=== PATIENT | female | born 1955 | race Caucasian/White ===

== ENCOUNTER 2016-09-26 22:55 | Emergency (ER) | payer OTHER ==
[~2016-09-26 22:55] MED LIST: AMLO5TAB2 PO; ASEN5TAB7 SL; BUPR100T6 PO; CLON0.5T PO; KLO5T PO; LEVO75TA4 PO; MELO-259 PO; OXCA600T3 PO; TRAZ-118 PO; lithium carbonate
[2016-09-26 23:00] VITALS: BP 77/50; PULSE 53; RESP 14; O2SAT 92
[2016-09-26] MEDS ORDERED: 0.9% Sodium Chloride 1,000 ML IV ONE (23:46)
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
[2016-09-27 00:04] LABS: BASOPHILS % (AUTO) 0.1 % (0-3); EOSINOPHILS % (AUTO) 1.7 % (0-5); MONOCYTES % (AUTO) 8.1 % (4-12); Mean Corpuscular Hemoglobin 27.3 pg (27.0-35.0); Mean Corpuscular Volume 80.5 fL (81-100); NEUTROPHILS % (AUTO) 49.3 % (40-74); Platelet Count 300 bil/L (150-400)
[2016-09-27 00:15] VITALS: BP 114/65; PULSE 55; RESP 16; O2SAT 98
[2016-09-27 00:22] LABS: TROPONIN T 0.01 ug/L (0.0-0.011)
[2016-09-27 00:53] VITALS: BP 121/57; PULSE 59; RESP 11; O2SAT 100
[2016-09-27 01:47] LABS: APPEARANCE,URINE HAZY (CLEAR,HAZY); COLOR,URINE STRAW (YELLOW); OCCULT BLOOD,URINE NEGATIVE (NEGATIVE); UROBILINOGEN,URINE NORMAL (NORMAL)
[2016-09-27 03:06] VITALS: BP 124/74; PULSE 77; RESP 14; O2SAT 99
--- NOTE | 2016-09-27 11:09 | DRSVH ---
PROCEDURE: X-RAY CHEST ONE VIEW, PORTABLE ([id number]) INDICATIONS: syncope TECHNIQUE: One view of the chest was acquired. COMPARISON: [facility], , CHEST 1VW (PORTABLE), 01/25/2013, 9:06. FINDINGS: Surgical changes and devices: Inferior cervical spine fusion. Lungs and pleura: No pleural effusions or pneumothorax. Mild diffuse interstitial prominence. Lungs are otherwise clear. Mediastinum: Mediastinal contours appear normal. Heart size is normal. Bones and chest wall: No suspicious bony lesions. Overlying soft tissues appear unremarkable. IMPRESSION: No acute cardiopulmonary disease. Dictated by: Vane Ray M.D. on 09/27/2016 at 11:06 Approved by: Vane Ray M.D. on 09/27/2016 at 11:06
[2016-10-17] MEDS ORDERED: ZIPR80CA2 PO (10:55)
[2016-10-17] MEDS ORDERED: MELA3TAB35 PO (10:55)
[2016-10-20] MEDS ORDERED: OXCA600T3 PO (08:02)
== END 2016-09-27 03:07 | disposition home or self-care (01) ==
LOC: SED 22:55
DX: R55 Syncope and collapse (principal); F31.9 Bipolar disorder, unspecified; M32.9 Systemic lupus erythematosus, unspecified; M19.90 Unspecified osteoarthritis, unspecified site; Z87.891 Personal history of nicotine dependence; Z88.5 Allergy status to narcotic agent; Z88.8 Allergy status to other drugs, medicaments and biological substances
CPT/HCPCS: 36415; 71010; 80053; 81000; 82948; 83735; 84484; 85025; 87040; 87086; 87088; 93005; 96360; 99285; J7030

== ENCOUNTER → 2016-10-20 | Day surgery (SDC) | payer OTHER ==
[~2016-10-20] VITALS: Ht 165.1 cm; Wt 72.6 kg
[~2016-10-20] MED LIST changes: -ASEN5TAB7 SL; -BUPR100T6 PO; +MELA3TAB35 PO; -MELO-259 PO; +Sodium Chloride LOK Flush 10 mL Syringe IVFLUSH SCH; +ZIPR80CA2 PO; +fentaNYL-PF 50 mCg/mL 2 mL Inj IVPUSH PRN; +fentaNYL-PF 50 mCg/mL 2 mL Inj ONE; -lithium carbonate
[2016-10-20 08:09] VITALS: BP 122/67; PULSE 58; RESP 15; O2SAT 96
[2016-10-20 09:27] VITALS: BP 127/66; PULSE 66; O2SAT 97
[2016-10-20 09:37] VITALS: BP 115/66; PULSE 57; O2SAT 97
[2016-10-20 09:44] VITALS: BP 115/79; PULSE 60; O2SAT 97
--- NOTE | 2016-10-20 10:01 | ENDO ---
[address] [address] ENDOSCOPY PROCEDURE PATIENT: NOEL GAGE : 1955 MR#: [id number] ADMIT: 10/20/2016 JOB ID: [id number] DATE: 10/20/2016 TYPE OF PROCEDURE: Colonoscopy. INDICATION: Patient with a personal history of colon polyps. Patient's ASA classification is 2. Mallampati score is 2. MEDICATIONS: 1. Versed 4 mg. 2. Fentanyl 75 mcg. INSTRUMENT USED: PCF-H180AL PREPARATION QUALITY: Fair. PROCEDURE DETAILS: After informed consent was obtained, the patient was brought in to the GI suite, where she was placed on oxygen via nasal cannula and monitored with continuous pulse oximeter, telemetry, and blood pressure monitoring. A time-out was performed. Then, she was placed in a left lateral decubitus position and medications were administered for sedation. Digital rectal exam was performed and was unremarkable. The colonoscope was then inserted into the rectum and advanced under direct visualization to the cecum, which was identified by the presence of the ileocecal valve and appendiceal orifice. Once the cecum was reached, the colonoscope was withdrawn back to the rectum. Mucosa and lumen were examined. In the rectum, retroflexion was performed. Following retroflexion, remaining air in the rectum was suctioned and procedure was completed. FINDINGS: 1. In the ascending colon, there was a diminutive polyp that was removed with cold biopsy forceps. 2. In the transverse colon, there was a diminutive polyp that was removed with cold biopsy forceps. 3. Scattered diverticula were seen throughout the left side of the colon. 4. Internal hemorrhoids were noted as the colonoscope was withdrawn through the anal canal. IMPRESSION: 1. Ascending colon polyp. 2. Transverse colon polyp. 3. Left-sided diverticulosis. 4. Internal hemorrhoids. RECOMMENDATIONS: 1. Repeat colonoscopy in five years. 2. Fiber rich diet. 3. Follow up in GI clinic as needed. COMPLICATIONS: None. ESTIMATED BLOOD LOSS: Less than 5 mL.
--- NOTE | 2016-10-21 13:46 | PATH ---
SURGICAL PATHOLOGY Attending Physician:Gabrielle Gonzalez CASE STATUS: Signed Out PATIENT NAME: NOEL GAGE PID: [id number] : 1955 DATE COLLECTED:10/20/2016 16:19 SPECIMEN: 1: Colon, Polyp 2: Colon, Polyp CLINICAL HISTORY: 1). ASCENDING POLYP 2). TRANSVERSE POLYP FINAL DIAGNOSIS: 1.ASCENDING POLYP, BIOPSY: - TUBULAR ADENOMA. 2.TRANSVERSE POLYP, BIOPSY: - HYPERPLASTIC POLYP IN 1 OF 2 FRAGMENTS. ICD10 D12.6 GROSS DESCRIPTION: The specimen is received in two formalin filled containers labeled with the patient's name. 1). The specimen is labeled "ascending polyp" and consists of a 0.4 x 0.3 x 0.2 CM portion of tissue which is entirely submitted in cassette 1A. 2). The specimen is labeled "transverse polyp" and consists of a 0.7 x 0.1 x 0.1 CM portion of tissue which is entirely submitted in cassette 2A. 10/20/2016DC MICRO DESCRIPTION: See diagnosis. ICD-9 CODES: CPT CODES: 1: 19753 2: 13479 Electronically Signed Out Lizandro Santoyo MD Located Within [facility] [address], [place] [address] Technical component performed at [facility], [facility] [address], [place], [address]
== END | disposition home or self-care (01) ==
LOC: END 00:01
PROVIDERS: ATTEND Internal Medicine Gastroenterology
DX: Z12.11 Encounter for screening for malignant neoplasm of colon (principal); D12.2 Benign neoplasm of ascending colon; K63.5 Polyp of colon; K57.30 Diverticulosis of large intestine without perforation or abscess without bleeding; K64.8 Other hemorrhoids; I10 Essential (primary) hypertension; M79.7 Fibromyalgia; F31.9 Bipolar disorder, unspecified; E55.9 Vitamin D deficiency, unspecified
CPT/HCPCS: 45380; G0500; J2250; J3010; J7030

== ENCOUNTER 2016-11-18 11:19 | Inpatient (IN) | payer OTHER ==
[~2016-11-18] VITALS: Ht 165.1 cm; Wt 5.0 kg
[2016-11-18] VITALS (10 sets, daily range): BP systolic 94–146; BP diastolic 50–69; PULSE 50–68; RESP 10–20; O2SAT 94–99
[~2016-11-18 11:19] MED LIST changes: -AMLO5TAB2 PO; +CHOL500051 PO; -CLON0.5T PO; +CeFAZolin Inj 2 GM in IV Premix 1 EACH IV SCH; -KLO5T PO; -LEVO75TA4 PO; +OXCA300T5 PO; -OXCA600T3 PO; -Sodium Chloride LOK Flush 10 mL Syringe IVFLUSH SCH; +TRAM50TA2 PO; -TRAZ-118 PO; +TRAZ300T3 PO; +VITA1TAB47 PO; +Vancomycin Dose per Pharmacist XX ONE; +Vancomycin Inj 1,000 MG in IV Premix 1 EACH IV SCH; -fentaNYL-PF 50 mCg/mL 2 mL Inj IVPUSH PRN; -fentaNYL-PF 50 mCg/mL 2 mL Inj ONE; +resperidone
[2016-11-18] MEDS: Lactated Ringer's 1,000 ML IV SCH ×3 (12:00→16:44)
[2016-11-18] MEDS ORDERED: Bupivacaine Liposome 1.3% 20 mL Inj ONE (12:37)
--- NOTE | 2016-11-18 13:22 | PCM.HPANE ---
Patient Data Surgeon Admitting Provider: Attending Provider:Anthony Monae DO Primary Care Physician:Humberto Duvall MD Other Provider:Brooklyn Burciagaingham Anesthesia Reason for Visit Right Hip Arthritis Ht/WT & BMI Height (Feet): 5 Height (Inches): 5.00 Weight (Kilograms): 71.6 Body Mass Index 26.00 Allergies Coded Allergies: codeine (Verified Allergy, Severe, Itching, 11/12/16) pregabalin (Verified Adverse Reaction, Severe, VISION LOSS, 11/12/16) Past Anesthesia History Anesthesia History: Denies:: Abnormal Airway, Anesthesia Reactions, Difficult Intubation, Malignant Hyperthermia Diabetes History Hx Diabetes?: No MRSA MRSA: No Medications Home Meds Incl Beta Katie: No Reported Medications Cholecalciferol (Vitamin D3) (Vitamin D)5,000 Unit Capsule5,000 Unit PO DAILY 11/12/16 B Complex with Vitamin C (Vitamin B-Complex & C)1 Each Tablet.er1 Each PO 11/12/16 Oxcarbazepine (Trileptal)300 Mg [id number] Mg PO HS 30 Days 11/12/16 Trazodone 300 Mg [id number] Mg PO HS Ref 0 11/12/16 Tramadol 50 Mg Ycphny36 Mg PO TID PRN For Pain Ref 0 11/12/16 [resperidone] No Conflict Check1 Mg DAILY 11/12/16 Melatonin 3 Mg Tablet3 Mg PO HS 11/12/16 Ziprasidone (Geodon)80 Mg Fhdtvlb46 Mg PO BID 11/12/16 Discontinued Reported Medications Oxcarbazepine (Trileptal)600 Mg Tablet1,500 Mg PO DAILY 30 Days 10/20/16 Melatonin 3 Mg Tablet3 Mg PO 10/17/16 Ziprasidone (Geodon)80 Mg Mmxepkg25 Mg PO BID 10/17/16 Levothyroxine 75 Mcg Pllwto07 Mcg PO DAILY Ref 0 07/19/15 Trazodone 100 Mg Nmyksx572 Mg PO HS Ref 0 07/18/15 History History of ENT Problems?: No HEENT History: Denies:: Abnormal Airway Cataracts Difficult Intubation Dysphagia Glaucoma Hearing Problem Sinus Problem TMJ Denture Type: None Teeth Condition: Within Normal Limits Hx of Heart Problems?: Yes Cardiovascular History: Denies:: AICD Chest Pain Congestive Heart Failure Hypertension Pacemaker Valvular Heart Disease Hx of Respiratory Problem?: No Respiratory History: Positive for:: Pneumonia (2005) Denies:: Oxygen Administration Tuberculosis Use of C-PAP Machine Hx Neurologic Problems?: No Neurological History: Denies:: Alzheimer's Disease CVA Dementia Dizziness Headaches Parkinson's Disease TIA Hx of GI Problems?: No Hx of Problems?: No Genitourinary History: Denies:: Urinary Tract Infection Female Hx: Positive for:: Problems with Breasts? (S/P BREAST REDUCTION) Denies:: Currently Skin History: Denies:: History Skin Disorders? Pressure Ulcers Hx Musculoskeletal Problems?: Yes Musculoskeletal History: Positive for:: Degenerative Joint Joint Replacement (S/P BILAT TKA'S, left hip, cervical spine) Musculoskeletal Trauma (left shoulder current admission problem) Osteoarthritis Denies:: Systemic Lupus Hx of Psycho/Social Problems?: Yes Psycho Social History: Positive for:: Anxiety Bipolar Disorder (DR. YAÑEZ/SURPRISE) Hx Depression Hx Surgeries?: Yes (BREAST REDUCTION,BILAT TKA'S, ) Hx Any Other Health Problems?: Yes Other History: Positive for:: Hospitalization (Lt hip repair) Denies:: Cancer (Pre cancer cervix removed at age 16) Endocrine Disease Thyroid Disease History Blood Transfusions: Positive for:: Accept Blood Products? Blood Transfusions Denies:: Blood Transfuse Reaction Hx Diabetes: No Hx Alcohol Use: NoHx Substance Use: No Smoking Status: Former Smoker Have You Smoked inLast 12 mo: No Stop/Bang S-Snoring: Do You Snore Loudly: No T-Tired: feel tired, fatigued: No O-Obsered: Observed not breath: No P-Blood Pressure: treated: No B- Body Mass Index > 35 kg/m2: No A- Age over 50: Yes N- Neck Large Circumference: No G- Gender Male: No ORION Total Score: 1 Risk Assessment Category Category 1A: Patient has history of documented sleep apnea, and HAS NOT received any narcotic, sedative or anesthesia administration during this stay. Category 1B: Patient has history of documented sleep apnea, and HAS received any narcotic , sedative or anesthesia administration during this stay Category 2: Patient has SUSPECTED Obstructive Sleep Apnea, and HAS received any narcotic , sedative or anesthesia administration during this stay. Category 3: Patient has SUSPECTED Obstructive Sleep Apnea and HAS NOT received narcotic, sedative or anesthesia administration during this stay. Category 4: Outpatient in Procedural Areas with known sleep apnea or who screen positive for High Risk via the STOP/BANG questionnaire. Exam Exam Vital Signs Vital Signs Date Time Temp Pulse Resp B/P Pulse Ox O2 Delivery O2 Flow Rate FiO2 11/18/16 12:29 36.6 60 16 138/66 95 Room Air General Appearance: Alert, Oriented X3 HEENT/AIRWAY: MP 2, Neck Movement (FROM) Lungs: Clear to Auscultation, Clear to Percussion Heart: Exam Unremarkable, Regular Rate/Rhythm Plan Impression Patient chart reviewed, patient interviewed and anesthestic plan with risks, benefits, and alternatives discussed, and informed consent obtained. ASA Physical Status: ASA2 Mod Systemic Disease Anesthetic Plan: SAB Bene/Risks/Altern/Consents: Yes HP Complete Prior to Induction: Yes Trever Warren MD Nov 18, 2016 12:35
[2016-11-18] MEDS ORDERED: Bupivacaine Liposome 1.3% 20 mL Inj INFILTRATE ONE (13:39)
[2016-11-18] MEDS ORDERED: Bupivacaine-MPF 0.25%/EPI 30 mL Inj INFILTRATE ONE (13:40)
[2016-11-18] MEDS ORDERED: 0.9% Sodium Chloride 10 mL Inj INFILTRATE ONE (13:40)
[2016-11-18] MEDS ORDERED: Lactated Ringer's 500 ML IV PRN (13:47)
[2016-11-18] MEDS ORDERED: Lactated Ringer's 1,000 ML IV SCH (13:47)
[2016-11-18] MEDS ORDERED: Ondansetron 2 mg/mL 2 mL Inj IVPUSH PRN ×2 (13:50→15:35)
[2016-11-18] MEDS ORDERED: Labetalol 5 mg/mL 20 mL Inj IV PRN (13:50)
[2016-11-18] MEDS ORDERED: EPHEDrine Sulfate 50 mg/mL Inj IVPUSH PRN (13:50)
[2016-11-18] MEDS ORDERED: Phenylephrine 10,000 mCg/mL Inj IVPUSH PRN (13:50)
[2016-11-18] MEDS ORDERED: HYDROmorphone 1 mg/mL Inj IVPUSH PRN ×2 (13:50→15:35)
[2016-11-18] MEDS ORDERED: Atropine 0.4 mg/mL Inj IVPUSH PRN (13:50)
[2016-11-18] MEDS ORDERED: fentaNYL-PF 50 mCg/mL 2 mL Inj IVPUSH PRN (13:50)
[2016-11-18] MEDS ORDERED: MetoCLOpramide 5 mg/mL 2 mL Inj IVPUSH PRN (13:50)
[2016-11-18] MEDS ORDERED: hydrOXYzine Pamoate 25 mg Capsule PO PRN (15:35)
[2016-11-18] MEDS ORDERED: Magnesium Hydroxide 10 mL Oral Concentration PO PRN (15:35)
[2016-11-18] MEDS ORDERED: Polyethylene Glycol (PEG) 17 Gm Powder PO PRN (15:35)
[2016-11-18] MEDS ORDERED: diphenhydrAMINE 25 mg Capsule PO PRN (15:35)
--- NOTE | 2016-11-18 15:53 | PCM.ANEP1 ---
Post Anesthesia PACU Phase 1 Assessment Vital Signs Vital Signs Date Time Temp Pulse Resp B/P Pulse Ox O2 Delivery O2 Flow Rate FiO2 11/18/16 15:46 36.2 58 14 120/64 97 Room Air 11/18/16 12:29 36.6 60 16 138/66 95 Room Air Anesthetic Administered: SAB Level of Alertness: Awake, talking GARCIA's with Equal Strength: No (SAB) Pain: No Nausea or Vomiting: No CV Function & Hydration Stable: Yes Airway Device: Oxygen Delivery: Room Air Lungs: Clear to Auscultation, Clear to Percussion PACU Phase 2 Assessment Complications: No Follow up Care: No Patient Instructions Provided: N/A Trever Warren MD Nov 18, 2016 15:53
[2016-11-18] MEDS ORDERED: Lactated Ringer's 1,000 ML IV ONE (16:00)
[2016-11-18] MEDS: Sodium Chloride LOK Flush 10 mL Syringe IV SCH (16:30)
[2016-11-18] MEDS ORDERED: Ketamine 10 mg/mL 20 mL Inj ONE (16:33)
[2016-11-18] MEDS ORDERED: Propofol 10,000 mCg/mL 20 mL Inj ONE (16:33)
[2016-11-18] MEDS ORDERED: EPHEDrine/NS 5 mg/mL 5 mL Syringe ONE (16:33)
[2016-11-18] MEDS ORDERED: Glycopyrrolate 0.2 MG/ML 1mL Inj ONE (16:33)
[2016-11-18] MEDS ORDERED: fentaNYL-PF 50 mCg/mL 2 mL Inj ONE (16:33)
[2016-11-18] MEDS: 0.9% Sodium Chloride 1,000 ML IV SCH (16:42)
--- NOTE | 2016-11-18 16:50 | NUR ---
Post op Transfer to [facility] room 1001 via bed at 16:25. Report received from Franklyn. Pt is alert and oriented, RA. denies pain and nausea, requests coffee. S/p spinal, numb to about T10. Weight bag on R anterior hip.
--- NOTE | 2016-11-18 17:06 | DRSVH ---
PROCEDURE: X-RAY PELVIS W/LAT HIP (RT) ([id number]) INDICATIONS: s/p right total hip TECHNIQUE: AP pelvis and lateral view of the right hip acquired. COMPARISON: [facility], , XR PELVIS W LATERAL HIP RT, 07/21/2016, 8:41. FINDINGS: Bones: Patient is status post right hip arthroplasty, with hardware components in expected positions . The hip joint appears congruent. The visualized bony structures appear intact. There is also a l eft hip arthroplasty. Lower lumbar degenerative disc disease Soft tissues: Overlying postoperative changes are noted. No suspicious soft tissue densities. IMPRESSION: Expected postoperative appearance Dictated by: Alan Harrington M.D. on 11/18/2016 at 16:04 Approved by: Alan Harrington M.D. on 11/18/2016 at 16:05
[2016-11-18] MEDS: oxyCODONE-Acetamin 5-325 mg Tablet PO PRN ×2 (17:47→23:19)
--- NOTE | 2016-11-18 19:39 | OP ---
[address] [address] OPERATIVE REPORT PATIENT: NOEL GAGE : 1955 MR#: [id number] ADMIT: 11/18/2016 JOB ID: [id number] DATE OF SURGERY: 11/18/2016 PREOPERATIVE DIAGNOSIS(ES): Right hip degenerative joint disease. POSTOPERATIVE DIAGNOSIS(ES): Right hip degenerative joint disease. PROCEDURE: Right direct anterior total hip arthroplasty. SURGEON: Anthony Monae DO. SLUBBER OPERATOR: Santa Vaz PA-C. INDICATIONS: The patient is a 61-year-old female with right hip severe degenerative arthritis with failed conservative measures and wished to proceed with a right total hip arthroplasty. We discussed the risks, benefits, and possible complications of surgery including, but not limited to injury to nerves and vessels, infection, bleeding, incomplete relief of symptoms, stiffness, need for additional procedures. The patient had good understanding, all questions were answered and she wished to proceed. A respiratory care assistant was required for the successful completion of this procedure. PROCEDURE IN DETAIL: The patient was brought to the operating room. She was given a preoperative antibiotic 1 g TXA preoperatively, as well as a spinal anesthetic and placed onto the Conger table. The right hip was sterilely prepped and draped. An incision was made about 3 cm lateral and 2 cm distal to the ASIS overlying the tensor fascia remy muscle. Dissection was carefully carried through the subcutaneous tissue and electrocautery was used for hemostasis. The fascia overlying the CFL was incised in line with the skin incision, and the fascial plane was used between the TFL and the sartorius. The circumflex vessels were identified and suture ligated and cauterized and the fat overlying the anterior hip capsule was then identified and elevated as was some of the rectus. The retractors were then placed on either side of the femoral neck and a T-shaped capsular incision was made with the anterior and posterior leaves of the capsule which were tagged with suture. Next, an osteotome was used to place the provisional neck resection level and using fluoroscopy the neck resection level was chosen and the neck resection was performed with a saw, completed with an osteotome and the femoral head was then removed. Next, the acetabulum was prepared. Anterior and posterior acetabular retractors were placed and the pulvinar and labrum were removed. The acetabulum was reamed sequentially up to a size 47 for a 48 cup. Care was taken to ensure the appropriate abduction and anteversion and this was confirmed with fluoroscopy. I impacted a few pinnacle three-hole 48 cup and had excellent fixation purchase and a single superior screw was used to aid with fixation. I elected to place a 48 x 32 + 4 lateralized liner in order to have more polyethylene given her relatively young age. The poly was impacted into position and the hip was then slowly externally rotated, releasing the soft tissues off of the lateral femur in order to facilitate exposure. A box osteotome was used to begin the lateralized starting point for preparation of the femur, and the femur was then broached. Unfortunately, the initial broach did exit the cortex proximal medial and this was corrected. It was quite proximal and was of essentially no consequence. This was broached sequentially up to a size 3 stem which had excellent fit and fill and a calcar planer was used to smooth the top of the acetabulum. The hip was reduced and fluoroscopy was used to confirm reduction and satisfactory alignment and position of the prosthesis and appropriate leg lengths. The DePuy Tri Lock 3 stem was then impacted in position with a 1.5 head. This was reduced, had excellent range of motion, good stability, and the wound was then irrigated. A 2nd gram of TXA was given and the wound was closed with #1 Surgilon to repair the capsule. The fascia overlying the tensor fascia remy was repaired with 0-Vicryl, and the subcu was closed with 2-0, the skin was closed with a running subcuticular Stratafix suture. A mixture of Exparel, saline and Marcaine was added as an adjunct local anesthetic. Sterile dressings were applied. Patient tolerated the procedure well. Blood loss was 200 cc. Postoperative protocol: Have the patient weightbear to tolerance. Use a walker or cane for one month postoperatively. Use aspirin for DVT prophylaxis. Will plan for Percocet for postop pain as she has done well with this in the past.
[2016-11-18] MEDS ORDERED: OXcarbazepine 300 mg Tablet PO SCH (21:00)
[2016-11-18] MEDS: Senna-Docusate 8.6-50 mg Tablet PO SCH (21:29)
[2016-11-18] MEDS: CeFAZolin Inj 2 GM in IV Premix 1 EACH IV SCH (21:30)
--- NOTE | 2016-11-18 23:50 | NUR ---
Syncopal Episode At 2310 pt transferred to [facility] and while sitting has syncopal episode. Pt transferred back to bed with 2PA. Pt states "I feel dizzy and slightly nauseous." Pt also stated "I have had this happen to me prior to this admit." Pt visually looked pale. VS taken: Manual BP 95/50, P 64. SAO2 94% RA. Prior BP of: 134/61, P 68, SAO2 96%. C/o pain 8 out of 10 to right hip. Dressing C/D/I, with weight in place in when pt in bed. 1 tab Percocet given, denies Zofran at this time. Blood sugar taken, 117. NS running @100. Color returned to pt's face while RN in room. Continue to monitor BP's and pain.
[2016-11-19] MEDS: Sodium Chloride LOK Flush 10 mL Syringe IV SCH ×2 (00:30→08:30)
[2016-11-19 01:30] VITALS: BP 123/75; PULSE 71; O2SAT 96
[2016-11-19] MEDS: 0.9% Sodium Chloride 1,000 ML IV SCH (01:31)
[2016-11-19 01:32] VITALS: BP 107/70; PULSE 71
--- NOTE | 2016-11-19 01:33 | NUR ---
Ortho VS Attempted ortho VS due to previous syncopal episide this shift when pt requested BSC. Lay: BP 123/75, P 71, O2 96%. Sit: BP 107/70, P 71. Attempted to stand pt and take another set and pt started to feel dizzy after approx 30 seconds and needed to sit down. Once back in bed took another set: BP 90/65, P 66. Pt will use bed menezes until she can be re-evaluated with PT and MD later this morning.
[2016-11-19 01:35] VITALS: BP 90/65; PULSE 66
[2016-11-19 05:00] VITALS: BP_SYST 117; BP_SYST 120; BP_SYST 129; BP_DIAS 61; BP_DIAS 73; BP_DIAS 77; PULSE 66; PULSE 68; RESP 16; O2SAT 94; O2SAT 95
[2016-11-19] MEDS: oxyCODONE-Acetamin 5-325 mg Tablet PO PRN ×3 (05:15→13:07)
[2016-11-19] MEDS: CeFAZolin Inj 2 GM in IV Premix 1 EACH IV SCH (05:20)
[2016-11-19 06:28] LABS: BASOPHILS % (AUTO) 0 % (0-3); EOSINOPHILS % (AUTO) 0 % (0-5); MONOCYTES % (AUTO) 5.5 % (4-12); Platelet Count 236 bil/L (150-400)
--- NOTE | 2016-11-19 07:57 | PCM.PNORTH ---
Subjective Date of Service: Nov 19, 2016 Visit Information: Reason for Visit Right Hip Arthritis Surgery/Surgery Date RIGHT TOTAL HIP REPLACEMENT 11/18/16 Post-Op Day # 1 Date of Admission: Nov 18, 2016 at 16:32 Hospital Day # Subjective Syncopal episode last night and trying to get up after taking her night time sleep meds. Patient was seen by physical therapy this morning and ambulated 200 -150 feet, independent with transfers and orthostatic vital signs were normal. Postop General: No Shortness of Breath, No Chest Pain, Good Appetite Pain Management: PO Objective Exam Objective Patient is seen sitting up in bed Vital Signs and I/O Vital Sign - Last Date Time Temp Pulse Resp B/P Pulse Ox O2 Delivery O2 Flow Rate FiO2 11/19/16 05:00 36.6 66 16 129/73 95 Room Air Intake and Output 11/18/16 11/18/16 11/19/16 Cumulative From/Thru 15:00 23:00 07:00 11/12/16 09:46 - 11/19/16 06:41 Intake Total 1470 ml 300 ml 1552 ml 3322 ml Output Total 100 ml 1100 ml 1200 ml Balance 1470 ml 200 ml 452 ml 2122 ml Intake Oral 200 ml 350 ml 550 ml IV Total 1470 ml 100 ml 1202 ml 2772 ml Output Urine Total 100 ml 1100 ml 1200 ml # Bowel Movements 0 0 Lab & Micro Results Laboratory Tests Test 11/19/16 05:15 White Blood Count 8.3th/mm3 (3.8-10.1) Red Blood Count 3.64mil/mm3 (3.90-5.20) Hemoglobin 10.2g/dL (12.0-15.6) Hematocrit 30.2% (35.0-46.0) Mean Corpuscular Volume 83.0fL (81-100) Mean Corpuscular Hemoglobin 28.0pg (27.0-35.0) Mean Corpuscular Hemoglobin Concent 33.8% (32.0-37.0) Red Cell Distribution Width 13.5% (12.3-15.4) Platelet Count 236bil/L (150-400) Neutrophils (%) (Auto) 87.0% (40-74) Lymphocytes (%) (Auto) 7.3% (14-46) Monocytes (%) (Auto) 5.5% (4-12) Eosinophils (%) (Auto) 0% (0-5) Basophils (%) (Auto) 0% (0-3) Sodium Level 129mEq/L (134-144) Potassium Level 4.3mEq/L (3.5-5.2) Chloride Level 93mEq/L (97-108) Carbon Dioxide Level 22mmol/L (18-29) Blood Urea Nitrogen 6mg/dL (8-27) Creatinine 0.39mg/dL (0.57-1.00) Estimat Glomerular Filtration Rate 238mL/min (>59) Glucose Level 118mg/dL (60-99) Calcium Level 8.1mg/dL (8.5-10.1) Result Diagram: 11/19/1651411/19/16514 General Appearance: Alert, Oriented X3, Cooperative, No Acute Distress Extremities: Distal Pulses Palpable, No Compartment Syndrom Noted, Thigh & Calf Soft/Nontender Postop Sensory Motor: Distal Motor Intact, Distal Sensation Intact, NVI Distally SURGICAL WOUND : Wound Location/Description Right hip: Surgical dressing is clean, dry and intact Incision General Appearance: No Direct Observation Activity: Activity per PT Catheters: None Assessment & Plan Impression POD #1 Status post right direct anterior total hip arthroplasty Problems: Plan Weightbearing: Weightbearing as tolerated with walker 1 month DVT prophylaxis: aspirin 325 mg twice a day 6 weeks Physical therapy for transfers, progressive ambulation, therapeutic exercise Apply compression stockings prior to discharge. Patient brought her own. Wound care: Patient will remove surgical dressing on postop day 2 (tomorrow) and change tomorrow to an Island dressing Discharge plan: Discharge home today after afternoon PT Discharge instructions are reviewed Follow-up plan: In 2 weeks at [facility] with CHASIDY for wound check and at [address] Monae with x-rays Pain Management: Percocet, toradol VTE Prophylaxis: SCDs, Other (Aspirin 325 mg BID) Resuscitation Status: CPR: Attempt Resuscitation [place] PA-C Nov 19, 2016 07:57
[2016-11-19] MEDS ORDERED: risperiDONE 1 mg Tablet PO SCH ×2 (08:30→21:00)
[2016-11-19 08:45] VITALS: BP 108/64; PULSE 69; RESP 18; O2SAT 95
[2016-11-19] MEDS: Senna-Docusate 8.6-50 mg Tablet PO SCH (08:45)
--- NOTE | 2016-11-19 08:50 | PCM.DIORTH ---
Ortho Discharge Instruction Date of Service: Nov 19, 2016 Dates of Hospitalization Date of Hospital Admission Nov 18, 2016 at 16:32 Providers Admitting Physician: Anthony Monae DO Primary Care Physician: Humberto Duvall MD Attending Physician: Anthony Monae DO Activity Discharge Activity-General: Be up and about, Balance rest and activity, Elevate & ice extremity Right Lower Extremity: Weight Bearing as tolerated Discharge Assist Device: Front Wheeled Walker (x 1 month) Dressing and Incisional Care Discharge Dressing Care: Keep dressing clean, dry & intact Discharge Hygiene: May shower (see instructions below) Additional Instructions Discharge Instructions Weightbearing: Weightbearing as tolerated with walker 1 month DVT prophylaxis: aspirin 325 mg twice a day 6 weeks Thigh high compression stockings 4 weeks on right leg, and 2 weeks on left leg Activity: Increase her walking a little more each day Wound care: On removed the surgical dressing and replaced with small bandage. Leave the Steri-Strips in place on the skin On Thursday, the patient may shower if the wound has no drainage present. Wound may be uncovered to shower. Let soap and water run over the wound, pat dry and apply a new dressing. Hip precaution positions: Do not externally rotate the right leg past 90 Discharge plan: Discharge home today Follow Up Plan Follow Up Plan Follow-up plan: In 2 weeks at [facility] with CHASIDY for wound check and at [address] Monae with x-rays Call your provider for: Fever, Chills, Shortness of breath, Vomitting, Drainage at incision, Wound redness (that is spreading) Santa Vaz PA-C Nov 19, 2016 08:50
[2016-11-19] MEDS ORDERED: Aspirin-Expunged Drug, Do Not Renew! PO (09:16)
[2016-11-19] MEDS ORDERED: OXYC1TAB24 PO (09:16)
--- NOTE | 2016-11-19 09:20 | NUR ---
Social Work- Initial Assessment/ Discharge Data: See attached CM Initial Assessment. Pt is a 61 year old female admitted for anterior hip replacement. Pt's insurance is [employer]. Pt's PCP is Humberto Duvall MD. Pt's readmit risk score not entered at this time. 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 PT has cleared pt for home, she has walked 200 feet and completed her stairs. SW met with pt at bedside to discuss d/c planning, SW role explained. Pt alert and oriented x3. Pt resides in [place] in a home with no stairs with her grandson. Pt is not a caregiver. Pt uses no DME at baseline, has a cane and walker available for use. Pt is independent at baseline with ADLs and self-care. Pt has no HH history. Pt has history of [facility]. Pt has no LTC or VA benefits. Pt has DPOA on file. Pt to d/c home with son to transport via POV. No discharge needs identified. Pt provided with d/c planning checklist, phone number and plan written on whiteboard. Assessment: Pt who is independent at baseline. Plan: Pt to d/c home with her son to transport via POV. No discharge needs identified. YESENIA Boyd Addendum: 11/19/16 at 0931 by LACHELLE SPENCE SS Amended: Links added.
--- NOTE | 2016-11-19 09:21 | PCM.DC.ORT ---
Discharge Summary Date of Service: Nov 19, 2016 Date of Hospital Admission: Nov 18, 2016 at 16:32 Date of Surgery: Nov 18, 2016 Date of Discharge: Nov 19, 2016 Reason for Hospitalization: Right hip arthritis Procedures Performed: Right hip direct anterior total hip arthroplasty Hospital Course: The patient was admitted to the hospital on 11/18/2016 and underwent the above procedure. Antibiotic prophylaxis consisting of Ancef and vancomycin. The surgeon was Dr. Monae. Patient tolerated the procedure well and was transferred to recovery room in stable condition. On the evening after surgery after the patient had taking her evening sleep medications, she attempted to get up out of bed but had a syncopal episode and was hypotensive. The next morning she was seen by physical therapy and orthostatic vital signs were normal. She was able to ambulated 150-200 feet on and do stairs. Patient had physical therapy to work on ambulation and transfers. Weightbearing as tolerated with walker. Pain was managed with Percocet, Toradol. DVT prophylaxis: Aspirin 325 mg twice a day, SCDs, FELICITA hose. Patient progressed well with physical therapy and on POD-1 was discharged home. Follow-up: at [facility] 2 weeks postop for wound check and at [address] Monae with x-ray Diagnosis at Time of Discharge Status post right direct anterior total hip arthroplasty Problems: Disposition: Discharged home in stable condition. Discharge Instructions: Discharge Activity-General: Be up and about, Balance rest and activity, Elevate & ice extremity Right Lower Extremity: Weight Bearing as tolerated Discharge Assist Device: Front Wheeled Walker (x 1 month) Discharge Dressing Care: Keep dressing clean, dry & intact Discharge Hygiene: May shower (see instructions below) Weightbearing: Weightbearing as tolerated with walker 1 month DVT prophylaxis: aspirin 325 mg twice a day 6 weeks Thigh high compression stockings 4 weeks on right leg, and 2 weeks on left leg Activity: Increase her walking a little more each day Wound care: On removed the surgical dressing and replaced with small bandage. Leave the Steri-Strips in place on the skin On Thursday, the patient may shower if the wound has no drainage present. Wound may be uncovered to shower. Let soap and water run over the wound, pat dry and apply a new dressing. Hip precaution positions: Do not externally rotate the right leg past 90 Discharge plan: Discharge home today Follow-up plan: In 2 weeks at [facility] with CHASIDY for wound check and at [address] Monae with x-rays Call your provider for: Fever, Chills, Shortness of breath, Vomitting, Drainage at incision, Wound redness (that is spreading) ([resperidone]) 1 MG HS ([Aspirin-Expunged Drug, Do Not Renew!]) 325 MG TABLET 325 MG PO BID for 6 weeks after surgery B Complex with Vitamin C (Vitamin B-Complex & C) 1 Each Tablet.er 1 EACH PO Cholecalciferol (Vitamin D3) (Vitamin D) 5,000 Unit Capsule 5,000 UNIT PO DAILY Melatonin (Melatonin) 3 Mg Tablet 3 MG PO HS Oxcarbazepine (Trileptal) 300 Mg Tablet 750 MG PO HS Tramadol (Tramadol) 50 Mg Tablet 50 MG PO TID PRN PRN For Pain Trazodone (Trazodone) 300 Mg Tablet 300 MG PO HS Ziprasidone (Geodon) 80 Mg Capsule 80 MG PO BID oxyCODONE-Acetaminophen 5-325 mg (oxyCODONE-Acetaminophen 5-325 mg) 1 Each Tablet 1-2 TAB PO Q4H PRN PRN For Pain Max 8 per day Santa Vaz PA-C Nov 19, 2016 09:21
--- NOTE | 2016-11-19 10:22 | NUR ---
Evaluation completed. Please go to "Notes" then click on "Assessments and Notes" (bottom left corner of screen). Then select appropriate discipline tab on top of screen.
--- NOTE | 2016-11-19 13:59 | NUR ---
Discharge Patient discharged home with son via personal vehicle. Assisted patient to put on thigh high alicia hose that she brought from home and get dressed. IV DC'd intact and patent. Transferred into wheel chair SBA. Patient medicated for pain management before discharge. Denied dizziness and light headedness. Discharge information packet gone over and given to patient including educational handouts, new medication prescriptions, and follow up appointments. Patient sent with 3L bag of fluid that is being used for compression on right hip for 24 hrs and instructed patient and her son about keeping the bag in place until 1545 which would be the 24 hr raúl.
== END 2016-11-19 13:54 | disposition home or self-care (01) | DRG 470 ==
LOC: SAS 11:19 → OSC 16:32
PROVIDERS: ADMIT Orthopaedic Surgery; ATTEND Orthopaedic Surgery
PROC: 0SR904A Replacement of Right Hip Joint with Ceramic on Polyethylene Synthetic Substitute, Uncemented, Open Approach (ICD-10-PCS; principal; 2016-11-18 13:30)
DX: M16.11 Unilateral primary osteoarthritis, right hip (principal); Z96.653 Presence of artificial knee joint, bilateral